=== PATIENT | female | born 1935 | race Caucasian/White ===

== ENCOUNTER 2016-02-28 16:16 | Emergency (ER) | payer OTHER ==
[~2016-02-28] VITALS: Ht 160 cm; Wt 76.3 kg
[2016-02-28 16:20] VITALS: TEMP 36.7; Ht 160 cm; Wt 76.3 kg
[2016-02-28] MEDS ORDERED: ASPI-461 PO (17:08)
[2016-02-28] MEDS ORDERED: SERT-234 PO (17:08)
[2016-02-28] MEDS ORDERED: METO25TA56 PO (17:08)
[2016-02-28] MEDS ORDERED: ATOR10TA88 PO (17:08)
[2016-02-28] MEDS ORDERED: MOME0.1O TOP (17:08)
[2016-02-28] MEDS ORDERED: LEVO50TA PO (17:08)
[2016-02-28] MEDS ORDERED: HYDR12.56 PO (17:08)
[2016-02-28] MEDS ORDERED: ALPR-411 PO (17:08)
[2016-02-28] MEDS ORDERED: NIFE30TA83 PO (17:08)
[2016-02-28] MEDS ORDERED: MULT-513 PO (17:08)
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
[2016-02-28 19:43] VITALS: BP 145/91; PULSE 82; O2SAT 96
--- NOTE | 2016-02-29 00:08 | EMERGENCY ROOM VISIT NOTE ---
ED Visit Note First contact with patient: 16:26 I have personally evaluated and examined this patient. I agree with assessment and plan of Dalton Santacruz PA-C.
== END 2016-02-28 19:44 | disposition home or self-care (01) ==
LOC: C.EDB 16:18 → C.EDD 19:44
DX: S32.020A Wedge compression fracture of second lumbar vertebra, initial encounter for closed fracture (principal); V89.2XXA Person injured in unspecified motor-vehicle accident, traffic, initial encounter; Z86.73 Personal history of transient ischemic attack (TIA), and cerebral infarction without residual deficits; N28.9 Disorder of kidney and ureter, unspecified; Z79.82 Long term (current) use of aspirin; M85.80 Other specified disorders of bone density and structure, unspecified site

== ENCOUNTER 2016-07-06 20:22 | Emergency (ER) | payer OTHER ==
[~2016-07-06] VITALS: Ht 158.8 cm; Wt 80.1 kg
[~2016-07-06 20:22] MED LIST: ALPR-411 PO; ASPI-461 PO; ATOR10TA82 PO; HYDR12.56 PO; LEVO50TA PO; METO25TA56 PO; MOME0.1O TOP; MULT-513 PO; NIFE30TA83 PO; SERT-234 PO
[2016-07-06 20:29] VITALS: TEMP 36.8; Ht 158.8 cm; Wt 80.1 kg
[2016-07-06] MEDS ORDERED: SULFAMETHOXAZOLE/TRIMETHOPRIM DS 800/160MG TAB PO STA (21:35)
[2016-07-06] MEDS ORDERED: CEFTRIAXONE SOD INJ 1 GM ADDVIAL IV STA (21:35)
[2016-07-06 22:28] LABS: BASO % 0.7 %; BASO ABS # 0.05 K/uL (0-0.2); COMPLETE YES; EOS % 3.9 %; HEMATOCRIT 39.3 % (37-47); IG% 0.3 %; LYMPH % 26.6 %; LYMPH ABS # 1.96 K/uL (1.2-3.4); MEAN CELL VOLUME 85.6 fL (80-100); MEAN CORPUSCULAR HEMOGLOBIN 28.3 pg (25-34); MEAN CORPUSCULAR HGB CONC 33.1 g/dl (32-36); MEAN PLATELET VOLUME 11.4 fL (7.4-10.4); MONO % 7.6 %; NEUT % 60.9 %; PLATELET COUNT 248 K/uL (130-400); RED BLOOD COUNT 4.59 M/uL (4.2-5.4); WHITE BLOOD COUNT 7.36 K/uL (4.8-10.8)
[2016-07-06 22:45] LABS: BUN/CREATININE RATIO 16.7 (10-20); CALCIUM 9.6 mg/dl (8.5-10.1); CREATININE 1.3 mg/dl (0.60-1.20); POTASSIUM 3.6 mmol/L (3.5-5.1)
[2016-07-06] MEDS ORDERED: SULF800T23 PO (23:46)
[2016-07-06] MEDS ORDERED: CEPH500C2 PO (23:46)
--- NOTE | 2016-07-06 23:56 | EMERGENCY ROOM VISIT NOTE ---
History Report prepared by Trish: Melissa Casas Under the Supervision of: Dr. Andrew Austin M.D. First contact with patient: 21:06 Chief Complaint: SWELLING TO EXTREMITY Stated Complaint: LEG/ANKLE SWELLING, RED AND HOT History of Present Illness The patient is a 81 year old female who presents to the Emergency Room with complaints of constant bilateral leg swelling beginning today. She notes that her legs felt warm to touch. The patient was seen by her PCP today and had a chest x-ray, ECG, and blood work done. She was told to take extra Hydrochlorothiazide as well. She does not wear compression stockings. Source of History: patient Onset: today Position: leg (bilateral) Quality: other (swelling) Timing: constant Note: warm to touch Review of Systems See HPI for pertinent positives & negatives. A total of 10 systems reviewed and were otherwise negative. Past Medical & Surgical Medical Problems: (1) Heart disease (2) Hypertension Family History No pertinent family history stated. Social History Smoking Status: Never Smoker Housing Status: lives alone Current/Historical Medications Scheduled Alprazolam (Xanax), 0.5 MG PO HS Aspirin (Aspirin), 81 MG PO DAILY Atorvastatin (Lipitor), 10 MG PO DAILY Cephalexin Monohydrate (Keflex), 500 MG PO QID Hydrochlorothiazide (Hctz), 25 MG PO QAM Levothyroxine Sodium (Synthroid), 50 MCG PO DAILY Metoprolol Tartrate (Lopressor) (Lopressor), 25 MG PO DAILY Multivitamins/Minerals (Mvi With Minerals), 1 TAB PO DAILY Nifedipine Ext Rel (Procardia Xl Ext Rel), 30 MG PO DAILY Sulfa/Trimethoprim (Bactrim Ds 800MG/160MG), 1 TAB PO BID Allergies Coded Allergies: No Known Allergies (Unverified , 07/06/16) Physical Exam Vital Signs Date Time Temp Pulse Resp B/P Pulse Ox O2 Delivery O2 Flow Rate FiO2 07/07/16 00:00 85 20 138/80 96 Room Air 07/06/16 22:11 78 18 140/95 97 Room Air 07/06/16 20:29 36.8 88 20 133/81 95 Room Air Physical Exam GENERAL: Patient is a healthy-appearing well-nourished HEAD: Normocephalic atraumatic EYES: Ocular movements intact pupils equal and react to light OROPHARYNX mucous membranes are moist no exudates present no erythema or edema present NECK: Supple no nuchal rigidity CHEST: Good equal expansion LUNGS: Clear and equal to auscultation CARDIAC: Normal S1 and S2 ABDOMEN: Soft nontender no guarding BACK: No CVA tenderness EXTREMITIES: No pain upon palpation normal muscle strength in all groups no clubbing cyanosis or edema NEURO: Patient is following commands is answering questions appropriately. Alert and oriented x3 Cranial Nerves 2-12 grossly intact SKIN: Fine rash bilateral to the lower extremities bilaterally. Medical Decision & Procedures ER Provider Diagnostic Interpretation: US results per statrad and my review. US VENOUS BILATERAL LOWER EXTREMITIES: No DVT. Right Bakers cyst measuring 4.7 x 1.1 x 2.2 cm. Laboratory Results 07/06/16 21:50 Red Blood Count 4.59, Mean Corpuscular Volume 85.6, Mean Corpuscular Hemoglobin 28.3, Mean Corpuscular Hemoglobin Concent 33.1, Mean Platelet Volume 11.4, Neutrophils (%) (Auto) 60.9, Lymphocytes (%) (Auto) 26.6, Monocytes (%) (Auto) 7.6, Eosinophils (%) (Auto) 3.9, Basophils (%) (Auto) 0.7, Neutrophils # (Auto) 4.48, Lymphocytes # (Auto) 1.96, Monocytes # (Auto) 0.56, Eosinophils # (Auto) 0.29, Basophils # (Auto) 0.05 07/06/16 21:50 Test 07/06/16 21:50 White Blood Count 7.36 K/uL (4.8-10.8) Red Blood Count 4.59 M/uL (4.2-5.4) Hemoglobin 13.0 g/dL (12.0-16.0) Hematocrit 39.3 % (37-47) Mean Corpuscular Volume 85.6 fL (80-100) Mean Corpuscular Hemoglobin 28.3 pg (25-34) Mean Corpuscular Hemoglobin Concent 33.1 g/dl (32-36) Platelet Count 248 K/uL (130-400) Mean Platelet Volume 11.4 fL (7.4-10.4) Neutrophils (%) (Auto) 60.9 % Lymphocytes (%) (Auto) 26.6 % Monocytes (%) (Auto) 7.6 % Eosinophils (%) (Auto) 3.9 % Basophils (%) (Auto) 0.7 % Neutrophils # (Auto) 4.48 K/uL (1.4-6.5) Lymphocytes # (Auto) 1.96 K/uL (1.2-3.4) Monocytes # (Auto) 0.56 K/uL (0.11-0.59) Eosinophils # (Auto) 0.29 K/uL (0-0.5) Basophils # (Auto) 0.05 K/uL (0-0.2) RDW Standard Deviation 46.9 fL (36.4-46.3) RDW Coefficient of Variation 15.0 % (11.5-14.5) Immature Granulocyte % (Auto) 0.3 % Immature Granulocyte # (Auto) 0.02 K/uL (0.00-0.02) Anion Gap 9.0 mmol/L (3-11) Est Creatinine Clear Calc Drug Dose 33.7 ml/min Estimated GFR () 44.6 Estimated GFR (Non- 38.4 BUN/Creatinine Ratio 16.7 (10-20) Calcium Level 9.6 mg/dl (8.5-10.1) Labs reviewed by ED physician. Medications Administered Medications (Trade) Dose Ordered Sig/Pio Route Start Time Stop Time Status Last Admin Dose Admin Ceftriaxone Sodium (Rocephin Inj) 1 gm NOW STAT IV 07/06/16 21:35 07/06/16 21:38 DC 07/06/16 22:18 1 GM Trimethoprim/ Sulfamethoxazole (Septra Ds 800/ 160MG Tab) 1 tab NOW STAT PO 07/06/16 21:35 07/06/16 21:38 DC 07/06/16 22:18 1 TAB ED Course 2127: Past medical records reviewed. The patient was evaluated in room B6. A complete history and physical examination was performed. 2134: Ordered Septra Ds 800/160MG Tab 1 tab PO, Rocephin Inj 1 gm IV. 2346:: Upon reexamination the patient is resting comfortably. I discussed results and treatment plan with the patient. She verbalizes agreement and understanding. The patient is ready for discharge. Medical Decision Differential diagnosis: Etiologies such as cellulitis, abscess, MRSA infection, DVT, necrotizing fasciitis, dermatitis, drug eruption, as well as others were entertained. Medication Reconciliation: I attest that I have personally reviewed the patient' s current medication list Blood Pressure Screening: Patient was found to have an elevated blood pressure and was referred to their primary care doctor for recheck and further treatment This is an 81-year-old female who presents emergency department complaining of cellulitis bilaterally to her lower strongly. I'm concerned about the patient' s mild cellulitis therefore placed her on Keflex and Bactrim. She does not have an elevation in her white blood count has no evidence of a DVT. Based on these findings I feel that the patient is safe enough to be discharged home for follow-up with primary care physician. Patient was in agreement with the treatment plan. Impression Primary Impression: Cellulitis Scribe Attestation The scribe's documentation has been prepared under my direction and personally reviewed by me in its entirety. I confirm that the note above accurately reflects all work, treatment, procedures, and medical decision making performed by me. Departure Information Dispostion Home / Self-Care Prescriptions Sulfa/Trimethoprim (Bactrim Ds 800MG/160MG) Tab 1 TAB PO BID for 10 Days, #20 TAB Prov: Andrew Austin MD 07/06/16 Cephalexin Monohydrate (KEFLEX) 500 Mg Cap 500 MG PO QID for 10 Days, #40 CAP Prov: Andrew Austin MD 07/06/16 Referrals Alexandrea Holder M.D. (PCP) Forms HOME CARE DOCUMENTATION FORM, IMPORTANT VISIT INFORMATION, WORK / SCHOOL INSTRUCTIONS Patient Instructions Cellulitis - [facility], Hypertension Ne, My [facility] Additional Instructions You were found to have an elevated blood pressure today (>120 sytolic or >90 diastolic). Per medicare guidelines, you need to follow up with this blood pressure screening with your Primary Care Physician (PCP). For a new PCP call [phone]. You have been examined and treated today on an emergency basis only. This is not a substitute for, or an effort to provide, complete comprehensive medical care. It is impossible to recognize and treat all injuries or illnesses in a single emergency department visit. It is therefore important that you follow up closely with Dr Holder. Call as soon as possible for an appointment. Thank you for your time and consideration. I look forward to speaking with you again soon. Please don't hesitate to call us if you have any questions. Problem Qualifiers Primary Impression: Cellulitis Site of cellulitis: extremity Site of cellulitis of extremity: lower extremity Laterality: unspecified laterality Qualified Codes: L03.119 - Cellulitis of unspecified part of limb
[2016-07-07] VITALS: BP 138/80; PULSE 85; O2SAT 96
--- NOTE | 2016-07-07 05:55 | DIAGNOSTIC IMAGING REPORT ---
ULTRASOUND BILATERAL LOWER EXTREMITY VENOUS CLINICAL HISTORY: Lower extremity edema. COMPARISON STUDY: No priors. TECHNIQUE: Real-time, grayscale, and color Doppler sonography of the deep veins of the right and left lower extremity was performed from the inguinal crease to the calf. Compression and augmentation were utilized. FINDINGS: There is no sonographic evidence of deep venous thrombosis identified in the right or left lower extremity. The common femoral, superficial femoral, and popliteal veins are patent and normally compressible bilaterally. The greater saphenous vein and the profunda femoris vein at the junction with the common femoral vein are clear in both legs. The visualized calf veins are patent bilaterally. A small popliteal cyst on the right measures 4.7 x 1.1 x 2.3 cm. IMPRESSION: 1. There is no sonographic evidence of deep venous thrombosis identified in the right or left lower extremity. 2. Small right-sided Lopez's cyst. Electronically signed by: Chris Peña M.D. 07/07/2016 5:54 AM Dictated Date/Time: 07/07/2016 5:53 AM
== END 2016-07-07 00:04 | disposition home or self-care (01) ==
LOC: C.EDB 20:23
DX: L03.119 Cellulitis of unspecified part of limb (principal); I10 Essential (primary) hypertension; Z79.82 Long term (current) use of aspirin; Z79.899 Other long term (current) drug therapy; R60.0 Localized edema